=== PATIENT | male | born 1965 | race Caucasian/White ===

== ENCOUNTER 2016-11-26 17:37 | Emergency (ER) | payer OTHER ==
[~2016-11-26] VITALS: Ht 170.2 cm; Wt 69.0 kg
[2016-11-26 17:38] VITALS: BP 145/99
[2016-11-26] MEDS ORDERED: MULT-1203 PEG (17:41)
== END 2016-11-26 18:06 | disposition home or self-care (01) ==
LOC: EMS 17:39
DX: S50.11XA Contusion of right forearm, initial encounter (principal); I10 Essential (primary) hypertension; X58.XXXA Exposure to other specified factors, initial encounter; Y92.89 Other specified places as the place of occurrence of the external cause; Y93.89 Activity, other specified; Y99.8 Other external cause status
CPT/HCPCS: 99281

== ENCOUNTER 2020-03-01 15:18 | Emergency (ER) | payer OTHER ==
[~2020-03-01] VITALS: Ht 172.7 cm; Wt 75.0 kg
[~2020-03-01 15:18] MED LIST: MULT-1203 PEG
[2020-03-01 15:22] VITALS: BP 133/84
== END 2020-03-01 16:33 | disposition home or self-care (01) ==
LOC: EMS 15:18
DX: U07.1 COVID-19 (principal)
CPT/HCPCS: 87426; 99283; U0003